=== PATIENT | female | born 1965 | race Caucasian/White ===

== ENCOUNTER 2020-10-08 02:54 | Inpatient (IN) ==
[2020-10-08] MEDS ORDERED: *HR* Dextrose 50 % in Water (Vial) 50 ML VIAL ONE (03:14)
[2020-10-08] MEDS ORDERED: 0.9 % Sodium Chloride 1,000 ML IVC ONE (03:23)
[2020-10-08 04:27] LABS: Bilirubin,Urine Negative (Negative); Blood,Urine Negative (Negative); Clarity,Urine Clear (Clear); Color,Urine Light-Yellow (Yellow); Glucose,Urine (UA) 200 mg/dL (Normal); Ketones,Urine Trace mg/dL (Negative); Leukocyte Esterase,Urine Negative (Negative); Nitrite,Urine Negative (Negative); Protein,Urine Negative (Neg-Trace); RBC,Urine 0-3 per hpf (0-3); Specific Gravity,Urine 1.009 (1.010-1.025); Squamous Epithelial Cell,Urine Few per hpf (None-Few); Urobilinogen,Urine Normal (Normal); WBC,Urine 0-3 per hpf (0-3)
[2020-10-08 04:43] LABS: VBG HCO3 29 mEq/L (21-27); VBG PCO2 53 mmHg (41-51); VBG PH 7.34 pH Units (7.32-7.42); VBG PO2 33 mmHg (25-50)
[2020-10-08 04:44] LABS: Basophils % 0.4 %; Eosinophils % 0.3 %; Hematocrit 41.9 % (35.3-44.9); Hemoglobin 13.4 g/dL (11.5-15.4); Immature Granulocytes % 0.4 % (0-4); Lymphocytes # 0.8 K/mcL (0.6-4.6); Lymphocytes % 6.9 %; Mean Corpuscular Hemoglobin 28.9 pg (28.0-33.3); Mean Corpuscular Volume 90.3 fL (83.0-100.0); Mean Platelet Volume 9.4 fL (9.4-12.4); Monocytes # 0.5 K/mcL (0.0-1.3); Monocytes % 4.5 %; Neutrophils # 9.7 K/mcL (1.6-8.9); Platelet Count 349 K/mcL (140-400); Red Blood Count 4.64 M/mcL (3.82-4.97); Red Cell Distribution Width 13.4 % (11.5-14.5); Segmented Neutrophils % 87.5 %; White Blood Count 11.1 K/mcL (4.3-11.1)
[2020-10-08 04:51] LABS: INR 1.2; Prothrombin Time 14.2 Seconds (9.4-12.1)
[2020-10-08 05:03] LABS: Alanine Aminotransferase 9 Units/L (7-52); Albumin/Globulin Ratio 1.4 (1.1-2.2); Alkaline Phosphatase 82 Units/L (34-104); Aspartate Amino Transferase 13 Units/L (13-39); BUN/Creatinine Ratio 14 (6-26); Bilirubin,Direct 0.1 mg/dL (0.0-0.2); Bilirubin,Indirect 0.4 mg/dL (0.0-1.0); Bilirubin,Total 0.5 mg/dL (0.3-1.0); Blood Urea Nitrogen 10 mg/dL (6-20); Calcium 8.8 mg/dL (8.6-10.3); Carbon Dioxide 26 mEq/L (23-29); Chloride 108 mEq/L (98-107); Globulin 2.9 g/dL (2.4-3.5); Glucose 154 mg/dL (70-105); Lipase 10 Units/L (11-82); Magnesium 2.1 mg/dL (1.6-2.6); Osmolality,Calculated 298 (280-300); Phosphorous 3.4 mg/dL (2.7-4.5); Potassium 3.2 mEq/L (3.5-5.1); Sodium 143 mEq/L (136-145); Total Protein 6.9 g/dL (6.4-8.9); Troponin I < 0.03 ng/mL (< 0.04); eGFR For African Americans > 60 (> 60); eGFR For Non-African Americans > 60 (> 60)
[2020-10-08] MEDS ORDERED: Piperacillin/Tazobactam 3.375 GM in 0.9 % Sodium Chloride Mini Bag 100 ML IVPB ONE (05:11)
[2020-10-08] MEDS ORDERED: Vancomycin 1,250 MG/262.5 ML IV.SOLN IVPB ONE (05:11)
[2020-10-08 05:16] LABS: Thyroid Stimulating Hormone 2.481 mcIU/mL (0.340-5.600)
[2020-10-08] MEDS ORDERED: Naloxone 0.4 MG/ML INJ IVP PRN (05:53)
[2020-10-08] MEDS ORDERED: Melatonin 3 MG TABLET PO PRN (05:53)
[2020-10-08] MEDS ORDERED: Ondansetron 4 MG/2 ML VIAL IVP PRN (05:53)
[2020-10-08] MEDS ORDERED: 0.9 % Sodium Chloride 1,000 ML IVC SCH (06:00)
[2020-10-08 06:23] LABS: Amphetamine Screen,Urine Positive ng/mL (Cutoff=1000); Barbiturate Screen,Urine Negative ng/mL (Cutoff=200); Benzodiazepines Screen,Urine Positive ng/mL (Cutoff=200); Cannabinoid Screen,Urine Positive ng/mL (Cutoff = 50); Cocaine Screen,Urine Positive ng/mL (Cutoff= 300); Opiate Screen,Urine Negative ng/mL (Cutoff=300); Phencyclidine Screen,Urine Negative ng/mL (Cutoff=25)
[2020-10-08] MEDS: Doxycycline 100 MG in 0.9 % Sodium Chloride Mini Bag 100 ML IVPB SCH ×2 (07:47→18:13)
[2020-10-08] MEDS ORDERED: *HR* LORazepam 2 MG/ML VIAL ONE ×3 (07:54→08:37)
[2020-10-08] MEDS ORDERED: *HR* LORazepam 2 MG/ML VIAL IVP STA ×3 (07:57→18:14)
[2020-10-08] MEDS ORDERED: *HR* LORazepam 2 MG/ML VIAL IVP ONE ×4 (08:01→11:31)
[2020-10-08] MEDS ORDERED: Haloperidol Lactate 5 MG/ML VIAL IVP ONE ×2 (08:04→10:24)
[2020-10-08 08:32] LABS: Acetaminophen < 10 mcg/mL (10-20); Salicylate < 2.5 mg/dL (15.0-30.0)
[2020-10-08] MEDS: 0.9 % Sodium Chloride 1,000 ML IVC SCH ×2 (10:36→18:14)
[2020-10-08] MEDS: Ampicillin/Sulbactam 1,500 MG in 0.9 % Sodium Chloride Mini Bag 100 ML IVPB SCH ×3 (11:22→21:53)
[2020-10-08] MEDS ORDERED: Ziprasidone 10 MG in Water for inj. (sterile) 0.5 ML IM STA (13:33)
[2020-10-08] MEDS ORDERED: QUEtiapine Fumarate 100 MG TABLET PO ONE (19:00)
[2020-10-09 02:18] LABS: Basophils # 0.1 K/mcL (0.0-0.2); Basophils % 0.5 %; Eosinophils # 0.1 K/mcL (0.0-0.6); Eosinophils % 0.5 %; Hematocrit 42.6 % (35.3-44.9); Hemoglobin 13.5 g/dL (11.5-15.4); Immature Granulocytes % 0.4 % (0-4); Lymphocytes # 1.5 K/mcL (0.6-4.6); Lymphocytes % 13.1 %; Mean Corpuscular HGB Conc 31.7 g/dL (31.6-35.5); Mean Corpuscular Hemoglobin 28.7 pg (28.0-33.3); Mean Corpuscular Volume 90.4 fL (83.0-100.0); Mean Platelet Volume 10.7 fL (9.4-12.4); Monocytes # 0.9 K/mcL (0.0-1.3); Monocytes % 8.3 %; Neutrophils # 8.8 K/mcL (1.6-8.9); Platelet Count 303 K/mcL (140-400); Red Blood Count 4.71 M/mcL (3.82-4.97); Red Cell Distribution Width 13.4 % (11.5-14.5); Segmented Neutrophils % 77.2 %; White Blood Count 11.4 K/mcL (4.3-11.1)
[2020-10-09 03:23] LABS: BUN/Creatinine Ratio 13 (6-26); Blood Urea Nitrogen 8 mg/dL (6-20); Calcium 9.3 mg/dL (8.6-10.3); Carbon Dioxide 18 mEq/L (23-29); Chloride 106 mEq/L (98-107); Glucose 54 mg/dL (70-105); Magnesium 1.8 mg/dL (1.6-2.6); Osmolality,Calculated 288 (280-300); Potassium 3.1 mEq/L (3.5-5.1); Sodium 141 mEq/L (136-145); eGFR For African Americans > 60 (> 60); eGFR For Non-African Americans > 60 (> 60)
[2020-10-09] MEDS: Ampicillin/Sulbactam 1,500 MG in 0.9 % Sodium Chloride Mini Bag 100 ML IVPB SCH ×4 (04:15→20:40)
[2020-10-09] MEDS ORDERED: Haloperidol Lactate 5 MG/ML VIAL IVP ONE (04:59)
[2020-10-09] MEDS: Doxycycline 100 MG in 0.9 % Sodium Chloride Mini Bag 100 ML IVPB SCH ×2 (05:01→17:16)
[2020-10-09] MEDS: diazePAM 10 MG/2 ML SYRINGE IVP PRN (08:58)
[2020-10-09] MEDS ORDERED: Potassium Chloride Elixir 20 MEQ/15 ML UDC PO ONE (13:30)
[2020-10-09] MEDS: *HR* Heparin 5,000 UNIT/ML VIAL SQ SCH ×2 (14:09→20:39)
[2020-10-09] MEDS: Acetaminophen 325 MG TABLET PO PRN (20:39)
[2020-10-10] MEDS: diazePAM 10 MG/2 ML SYRINGE IVP PRN (01:36)
[2020-10-10] MEDS: Ampicillin/Sulbactam 1,500 MG in 0.9 % Sodium Chloride Mini Bag 100 ML IVPB SCH ×2 (04:27→09:52)
[2020-10-10] MEDS: Acetaminophen 325 MG TABLET PO PRN ×2 (04:27→11:54)
[2020-10-10] MEDS: Doxycycline 100 MG in 0.9 % Sodium Chloride Mini Bag 100 ML IVPB SCH (05:04)
[2020-10-10] MEDS: *HR* Heparin 5,000 UNIT/ML VIAL SQ SCH (05:05)
[2020-10-10 08:21] LABS: Basophils # 0.1 K/mcL (0.0-0.2); Basophils % 0.8 %; Eosinophils # 0.1 K/mcL (0.0-0.6); Eosinophils % 0.7 %; Hematocrit 45.1 % (35.3-44.9); Hemoglobin 14.6 g/dL (11.5-15.4); Immature Granulocytes % 0.2 % (0-4); Lymphocytes # 1.7 K/mcL (0.6-4.6); Lymphocytes % 20.3 %; Mean Corpuscular HGB Conc 32.4 g/dL (31.6-35.5); Mean Corpuscular Hemoglobin 28.9 pg (28.0-33.3); Mean Corpuscular Volume 89.3 fL (83.0-100.0); Mean Platelet Volume 9.8 fL (9.4-12.4); Monocytes # 0.7 K/mcL (0.0-1.3); Monocytes % 8.9 %; Neutrophils # 5.7 K/mcL (1.6-8.9); Platelet Count 408 K/mcL (140-400); Red Blood Count 5.05 M/mcL (3.82-4.97); Red Cell Distribution Width 13.6 % (11.5-14.5); Segmented Neutrophils % 69.1 %; White Blood Count 8.2 K/mcL (4.3-11.1)
[2020-10-10 08:40] LABS: BUN/Creatinine Ratio 17 (6-26); Blood Urea Nitrogen 13 mg/dL (6-20); Calcium 9.2 mg/dL (8.6-10.3); Carbon Dioxide 27 mEq/L (23-29); Chloride 107 mEq/L (98-107); Glucose 89 mg/dL (70-105); Osmolality,Calculated 284 (280-300); Potassium 3.4 mEq/L (3.5-5.1); Sodium 137 mEq/L (136-145); eGFR For African Americans > 60 (> 60); eGFR For Non-African Americans > 60 (> 60)
[2020-10-10 12:08] VITALS: BP 133/80
== END 2020-10-10 14:07 | disposition home or self-care (01) | DRG 720 ==
LOC: EMEROOARM 02:54 → 2NNU 02:54 → SUATTDRO 06:45 → 2NNU 07:30 → 2ANU 15:50
PROVIDERS: ADMIT Student in an Organized Health Care Education/Training Program; ATTEND Student in an Organized Health Care Education/Training Program

== ENCOUNTER 2021-01-31 17:59 | Observation (INO) ==
[2021-01-31] MEDS ORDERED: Ipratropium/Albuterol Neb 3 ML IH ONE (20:11)
[2021-01-31 20:20] LABS: Basophils % 0.5 %; Eosinophils # 0.1 K/mcL (0.0-0.6); Eosinophils % 1.1 %; Hematocrit 34.7 % (35.3-44.9); Hemoglobin 11.2 g/dL (11.5-15.4); Immature Granulocytes % 0.4 % (0-4); Lymphocytes # 1.3 K/mcL (0.6-4.6); Lymphocytes % 22.8 %; Mean Corpuscular HGB Conc 32.3 g/dL (31.6-35.5); Mean Corpuscular Hemoglobin 29.3 pg (28.0-33.3); Mean Corpuscular Volume 90.8 fL (83.0-100.0); Mean Platelet Volume 9.7 fL (9.4-12.4); Monocytes # 0.5 K/mcL (0.0-1.3); Neutrophils # 3.7 K/mcL (1.6-8.9); Platelet Count 414 K/mcL (140-400); Red Blood Count 3.82 M/mcL (3.82-4.97); Red Cell Distribution Width 14.3 % (11.5-14.5); Segmented Neutrophils % 66.2 %; White Blood Count 5.7 K/mcL (4.3-11.1)
[2021-01-31 20:47] LABS: BUN/Creatinine Ratio 15 (6-26); Blood Urea Nitrogen 8 mg/dL (6-20); Calcium 8.6 mg/dL (8.6-10.3); Carbon Dioxide 27 mEq/L (23-29); Chloride 99 mEq/L (98-107); Glucose 117 mg/dL (70-105); Osmolality,Calculated 283 (280-300); Sodium 137 mEq/L (136-145); Troponin I < 0.03 ng/mL (< 0.04); eGFR For African Americans > 60 (> 60); eGFR For Non-African Americans > 60 (> 60)
[2021-01-31] MEDS ORDERED: Piperacillin/Tazobactam 3.375 GM in 0.9 % Sodium Chloride Mini Bag 100 ML IVPB ONE (21:00)
[2021-01-31] MEDS ORDERED: Potassium Chloride Elixir 20 MEQ/15 ML UDC PO ONE (21:29)
[2021-01-31] MEDS ORDERED: Isovue-370 500 ML BOTTLE IVP ONE (22:50)
[2021-02-01] MEDS ORDERED: Naloxone 0.4 MG/ML INJ IVP PRN (03:53)
[2021-02-01] MEDS ORDERED: methylPREDNISolone 125 MG/2 ML VIAL IVP ONE (06:05)
[2021-02-01] MEDS ORDERED: Perflutren Lipid Microsphere 1.3 ML in 0.9 % Sodium Chloride 8.7 ML IVP PRN (06:25)
[2021-02-01] MEDS ORDERED: Piperacillin/Tazobactam 3.375 GM in 0.9 % Sodium Chloride Mini Bag 100 ML IVPB SCH (07:00)
[2021-02-01] MEDS: Ipratropium/Albuterol Neb 3 ML IH SCH ×2 (08:02→11:06)
[2021-02-01] MEDS ORDERED: Nicotine 21 MG PATCH.TD24 TD SCH (09:00)
[2021-02-01] MEDS ORDERED: Lactobacillus 1 EACH CAP.SPRINK PO SCH (09:00)
[2021-02-01] MEDS ORDERED: Furosemide 40 MG/4 ML VIAL IVP SCH (09:00)
[2021-02-01] MEDS ORDERED: Budesonide/Formoterol 160/4.5 1 PUFF INH IH SCH (10:00)
[2021-02-01 10:13] LABS: Basophils % 0.5 %; Eosinophils % 0.3 %; Hematocrit 35.8 % (35.3-44.9); Hemoglobin 11.8 g/dL (11.5-15.4); Immature Granulocytes % 0.6 % (0-4); Lymphocytes # 0.5 K/mcL (0.6-4.6); Lymphocytes % 7.9 %; Mean Corpuscular Hemoglobin 29.9 pg (28.0-33.3); Mean Corpuscular Volume 90.6 fL (83.0-100.0); Mean Platelet Volume 9.4 fL (9.4-12.4); Monocytes # 0.2 K/mcL (0.0-1.3); Monocytes % 2.9 %; Neutrophils # 5.5 K/mcL (1.6-8.9); Platelet Count 406 K/mcL (140-400); Red Blood Count 3.95 M/mcL (3.82-4.97); Red Cell Distribution Width 14.4 % (11.5-14.5); Segmented Neutrophils % 87.8 %; White Blood Count 6.2 K/mcL (4.3-11.1)
[2021-02-01 10:33] LABS: BUN/Creatinine Ratio 11 (6-26); Blood Urea Nitrogen 6 mg/dL (6-20); Calcium 8.4 mg/dL (8.6-10.3); Carbon Dioxide 27 mEq/L (23-29); Chloride 101 mEq/L (98-107); Glucose 109 mg/dL (70-105); Magnesium 1.8 mg/dL (1.6-2.6); Osmolality,Calculated 282 (280-300); Phosphorous 3.6 mg/dL (2.7-4.5); Potassium 4.2 mEq/L (3.5-5.1); Sodium 137 mEq/L (136-145); eGFR For African Americans > 60 (> 60); eGFR For Non-African Americans > 60 (> 60)
[2021-02-01 10:57] VITALS: BP 121/70
[2021-02-01 11:02] LABS: Amphetamine Screen,Urine Positive ng/mL (Cutoff=1000); Barbiturate Screen,Urine Negative ng/mL (Cutoff=200); Benzodiazepines Screen,Urine Negative ng/mL (Cutoff=200); Cannabinoid Screen,Urine Positive ng/mL (Cutoff = 50); Cocaine Screen,Urine Negative ng/mL (Cutoff= 300); Opiate Screen,Urine Negative ng/mL (Cutoff=300); Phencyclidine Screen,Urine Negative ng/mL (Cutoff=25)
[2021-02-01] MEDS: Nicotine 2 MG GUM BC SCH ×3 (11:04→14:37)
[2021-02-01 11:31] LABS: Adenovirus Not Detected (Not Detect); Bordetella Pertussis Not Detected (Not Detect); Chlamydophila pneumoniae Not Detected (Not Detect); Coronavirus 229E Not Detected (Not Detect); Coronavirus HKU1 Not Detected (Not Detect); Coronavirus NL63 Not Detected (Not Detect); Coronavirus OC43 Not Detected (Not Detect); Human Metapneumovirus Not Detected (Not Detect); Human Rhinovirus/Enterovirus Not Detected (Not Detect); Influenza A Subtype 2009 H1 Not Detected (Not Detect); Influenza B Not Detected (Not Detect); Mycoplasma pneumoniae Not Detected (Not Detect); Parainfluenza Virus 1 Not Detected (Not Detect); Parainfluenza Virus 2 Not Detected (Not Detect); Parainfluenza Virus 3 Not Detected (Not Detect); Parainfluenza Virus 4 Not Detected (Not Detect); Respiratory Syncytial Virus Not Detected (Not Detect); SARS-CoV-2 Not Detected (Not Detect)
[2021-02-01] MEDS ORDERED: MethylPREDNISolone 40 MG/ML VIAL IVP SCH (12:00)
[2021-02-01] MEDS ORDERED: *HR* Heparin 5,000 UNIT/ML VIAL SQ SCH (18:00)
[2021-02-02] MEDS ORDERED: Magnesium Oxide 400 MG TABLET PO SCH (09:00)
[2021-02-02] MEDS ORDERED: predniSONE 20 MG TABLET PO SCH (09:00)
[2021-02-02 12:39] LABS: Acinetobacter baumannii by PCR Not Detected (Not Detect); Candida albicans by PCR Not Detected (Not Detect); Candida glabrata by PCR Not Detected (Not Detect); Candida krusei by PCR Not Detected (Not Detect); Candida parapsilosis by PCR Not Detected (Not Detect); Candida tropicalis by PCR Not Detected (Not Detect); Enterobacter cloacae Cmplx PCR Not Detected (Not Detect); Enterobacteriaceae by PCR Not Detected (Not Detect); Enterococcus by PCR Not Detected (Not Detect); Escherichia coli by PCR Not Detected (Not Detect); Klebsiella oxytoca by PCR Not Detected (Not Detect); Klebsiella pneumoniae by PCR Not Detected (Not Detect); Proteus by PCR Not Detected (Not Detect); Pseudomonas aeruginosa by PCR Not Detected (Not Detect); Serratia marcescens by PCR Not Detected (Not Detect); Staphylococcus aureus by PCR Not Detected (Not Detect); Staphylococcus by PCR Not Detected (Not Detect); Streptococcus agalactiae(B)PCR Not Detected (Not Detect); Streptococcus by PCR Not Detected (Not Detect); Streptococcus pneumoniae PCR Not Detected (Not Detect); Streptococcus pyogenes (A) PCR Not Detected (Not Detect)
== END 2021-02-01 14:55 | disposition home or self-care (01) ==
LOC: EMEROOARM 17:59 → 3ANU 17:59 → SUATTDRO 02-01 02:34 → 3ANU 02-01 03:07
PROVIDERS: ADMIT Student in an Organized Health Care Education/Training Program; ATTEND Internal Medicine

== ENCOUNTER 2021-04-19 00:42 | Inpatient (IN) ==
[2021-04-19 07:15] LABS: Basophils % 0.3 %; Eosinophils # 0.1 K/mcL (0.0-0.6); Eosinophils % 0.6 %; Hematocrit 28.8 % (35.3-44.9); Hemoglobin 8.9 g/dL (11.5-15.4); Immature Granulocytes % 0.2 % (0-4); Lymphocytes # 1.3 K/mcL (0.6-4.6); Lymphocytes % 13.5 %; Mean Corpuscular HGB Conc 30.9 g/dL (31.6-35.5); Mean Corpuscular Hemoglobin 28.9 pg (28.0-33.3); Mean Corpuscular Volume 93.5 fL (83.0-100.0); Mean Platelet Volume 8.6 fL (9.4-12.4); Monocytes # 1.4 K/mcL (0.0-1.3); Monocytes % 14.6 %; Neutrophils # 6.7 K/mcL (1.6-8.9); Platelet Count 462 K/mcL (140-400); Red Blood Count 3.08 M/mcL (3.82-4.97); Red Cell Distribution Width 13.7 % (11.5-14.5); Segmented Neutrophils % 70.8 %; White Blood Count 9.4 K/mcL (4.3-11.1)
[2021-04-19 07:28] LABS: BUN/Creatinine Ratio 19 (6-26); Blood Urea Nitrogen 11 mg/dL (6-20); Calcium 8.1 mg/dL (8.6-10.3); Carbon Dioxide 26 mEq/L (23-29); Chloride 103 mEq/L (98-107); Glucose 100 mg/dL (70-105); Osmolality,Calculated 279 (280-300); Sodium 135 mEq/L (136-145); eGFR For African Americans > 60 (> 60); eGFR For Non-African Americans > 60 (> 60)
[2021-04-19] MEDS ORDERED: Isovue-370 500 ML BOTTLE IVP ONE ×2 (07:32→10:05)
[2021-04-19] MEDS ORDERED: Ipratropium/Albuterol Neb 3 ML IH ONE (07:32)
[2021-04-19] MEDS ORDERED: Aspirin 325 MG TABLET PO ONE (07:38)
[2021-04-19 08:39] LABS: Influenza A PCR Negative (Negative); Influenza B PCR Negative (Negative); Resp. Syncytial Virus PCR Negative (Negative); SARS-CoV-2 by PCR (In House) Negative (Negative)
[2021-04-19 09:16] LABS: Basophils % 0.3 %; Eosinophils # 0.1 K/mcL (0.0-0.6); Eosinophils % 0.6 %; Hematocrit 26.6 % (35.3-44.9); Hemoglobin 8.5 g/dL (11.5-15.4); Immature Granulocytes % 0.3 % (0-4); Lymphocytes # 1.1 K/mcL (0.6-4.6); Mean Corpuscular Hemoglobin 29.7 pg (28.0-33.3); Mean Platelet Volume 8.5 fL (9.4-12.4); Monocytes # 1.6 K/mcL (0.0-1.3); Monocytes % 15.2 %; Platelet Count 432 K/mcL (140-400); Red Blood Count 2.86 M/mcL (3.82-4.97); Red Cell Distribution Width 13.6 % (11.5-14.5); Segmented Neutrophils % 73.6 %; White Blood Count 10.8 K/mcL (4.3-11.1)
[2021-04-19 09:24] LABS: INR 1.6; Prothrombin Time 17.7 Seconds (9.4-12.1)
[2021-04-19 09:39] LABS: BUN/Creatinine Ratio 18 (6-26); Blood Urea Nitrogen 10 mg/dL (6-20); Calcium 8.1 mg/dL (8.6-10.3); Carbon Dioxide 25 mEq/L (23-29); Chloride 103 mEq/L (98-107); Glucose 121 mg/dL (70-105); Osmolality,Calculated 278 (280-300); Potassium 3.7 mEq/L (3.5-5.1); Sodium 134 mEq/L (136-145); eGFR For African Americans > 60 (> 60); eGFR For Non-African Americans > 60 (> 60)
[2021-04-19 09:40] LABS: Troponin I < 0.03 ng/mL (< 0.04)
[2021-04-19] MEDS ORDERED: cefTRIAXone 1,000 MG in Water for inj. (sterile) 10 ML IVP ONE (09:59)
[2021-04-19] MEDS ORDERED: Azithromycin 500 MG in 0.9 % Sodium Chloride 250 ML IVPB ONE (09:59)
[2021-04-19] MEDS ORDERED: Pantoprazole 40 MG VIAL IVP ONE (10:04)
[2021-04-19] MEDS ORDERED: Perflutren Lipid Microsphere 1.3 ML in 0.9 % Sodium Chloride 8.7 ML IVP PRN (12:13)
[2021-04-19] MEDS ORDERED: Naloxone 0.4 MG/ML INJ IVP PRN (12:35)
[2021-04-19] MEDS ORDERED: Ondansetron 4 MG/2 ML VIAL IVP PRN ×2 (12:35→18:21)
[2021-04-19] MEDS ORDERED: Ipratropium/Albuterol Neb 3 ML IH PRN (15:52)
[2021-04-19] MEDS ORDERED: *HR* Rocuronium Bromide 50 MG/5 ML VIAL ONE (16:24)
[2021-04-19] MEDS ORDERED: EPINEPHrine 1 MG/ML VIAL ONE (16:24)
[2021-04-19] MEDS ORDERED: *HR* Etomidate 20 MG/10 ML AMPUL IVP ONE (16:24)
[2021-04-19] MEDS ORDERED: *HR* FentaNYL (PF) 250 MCG/5 ML VIAL ONE (16:25)
[2021-04-19] MEDS ORDERED: Lidocaine 1% 20 ML MDV ONE (17:11)
[2021-04-19] MEDS ORDERED: Ondansetron 4 MG/2 ML VIAL ONE (17:15)
[2021-04-19] MEDS ORDERED: methylPREDNISolone 125 MG/2 ML VIAL ONE (17:15)
[2021-04-19] MEDS ORDERED: *HR* Meperidine 25 MG/ML SYRINGE IVP PRN (18:21)
[2021-04-19] MEDS ORDERED: *HR* OxyCODONE Immed Rel 5 MG TABLET PO PRN (18:21)
[2021-04-19] MEDS ORDERED: *HR* HYDROmorphone (PF) 1 MG/ML SYRINGE ONE (18:25)
[2021-04-19] MEDS ORDERED: *HR* FentaNYL (PF) 100 MCG/2 ML VIAL ONE (18:27)
[2021-04-19] MEDS: *HR* FentaNYL (PF) 100 MCG/2 ML VIAL IVP PRN ×4 (18:30→19:00)
[2021-04-19] MEDS ORDERED: Ringers Solution, Lactated 1,000 ML IVC SCH (18:30)
[2021-04-19] MEDS: *HR* HYDROmorphone (PF) 1 MG/ML SYRINGE IVP PRN (20:48)
[2021-04-19] MEDS: *HR* LORazepam 0.5 MG TABLET PO SCH (20:48)
[2021-04-19] MEDS: Sildenafil Citrate 20 MG TABLET PO SCH (21:01)
[2021-04-19 21:06] LABS: RBC,Pleural Fluid 5000 RBC/mcL
[2021-04-19 21:09] LABS: Appearance of Pleural Fl Hazy (Clear)
[2021-04-19 22:49] LABS: Appearance of Body Fluid Cloudy (Clear); Volume of Body Fluid 35 mL
[2021-04-19 23:14] LABS: Basophils,Pleural Fluid 0 %; Eosinophils,Pleural Fluid 0 %; Monocytes,Pleural Fluid 0 %
[2021-04-20 01:15] LABS: Total Protein,Pleural Fluid 2.8 g/dL
[2021-04-20] MEDS: *HR* HYDROmorphone (PF) 1 MG/ML SYRINGE IVP PRN ×4 (01:40→19:48)
[2021-04-20] MEDS: *HR* LORazepam 0.5 MG TABLET PO SCH ×3 (07:52→19:47)
[2021-04-20] MEDS: Cholecalciferol (D-3) 1,000 UNIT (25MCG) TABLET PO SCH (07:53)
[2021-04-20] MEDS: Aspirin 81 MG TAB.CHEW PO SCH (07:53)
[2021-04-20] MEDS: Sildenafil Citrate 20 MG TABLET PO SCH ×2 (07:53→14:21)
[2021-04-20] MEDS: Nicotine 14 MG PATCH.TD24 TD SCH (07:54)
[2021-04-20] MEDS ORDERED: predniSONE 20 MG TABLET PO ONE (08:31)
[2021-04-20] MEDS ORDERED: predniSONE 20 MG TABLET PO SCH (09:00)
[2021-04-20] MEDS: Hydrocortisone Sodium Succ 100 MG/2 ML VIAL IVP SCH ×3 (09:23→23:01)
[2021-04-20 09:51] LABS: Basophils % 0.1 %; Hematocrit 34.4 % (35.3-44.9); Immature Granulocytes % 0.2 % (0-4); Lymphocytes # 0.5 K/mcL (0.6-4.6); Lymphocytes % 5.3 %; Mean Corpuscular Hemoglobin 29.5 pg (28.0-33.3); Mean Corpuscular Volume 92.2 fL (83.0-100.0); Mean Platelet Volume 8.9 fL (9.4-12.4); Monocytes # 0.3 K/mcL (0.0-1.3); Monocytes % 2.7 %; Platelet Count 595 K/mcL (140-400); Red Blood Count 3.73 M/mcL (3.82-4.97); Red Cell Distribution Width 13.4 % (11.5-14.5); Segmented Neutrophils % 91.7 %; White Blood Count 9.8 K/mcL (4.3-11.1)
[2021-04-20 10:13] LABS: Alanine Aminotransferase 34 Units/L (7-52); Alkaline Phosphatase 177 Units/L (34-104); Aspartate Amino Transferase 17 Units/L (13-39); BUN/Creatinine Ratio 25 (6-26); Bilirubin,Indirect 0.3 mg/dL (0.0-1.0); Bilirubin,Total 0.3 mg/dL (0.3-1.0); Blood Urea Nitrogen 13 mg/dL (6-20); Calcium 8.7 mg/dL (8.6-10.3); Carbon Dioxide 24 mEq/L (23-29); Chloride 102 mEq/L (98-107); Glucose 94 mg/dL (70-105); Iron 10 mcg/dL (50-170); Magnesium 2.2 mg/dL (1.6-2.6); Osmolality,Calculated 276 (280-300); Potassium 4.3 mEq/L (3.5-5.1); Sodium 133 mEq/L (136-145); eGFR For African Americans > 60 (> 60); eGFR For Non-African Americans > 60 (> 60)
[2021-04-20 10:31] LABS: Ferritin 135 ng/mL (10-120)
[2021-04-20 10:36] LABS: Folate 6.5 ng/mL (3.0-16.0)
[2021-04-20] MEDS: Acetaminophen 325 MG TABLET PO PRN (11:23)
[2021-04-20 11:50] LABS: % Iron Saturation 5 % (15-50); Transferrin 156 mg/dL (203-362)
[2021-04-20] MEDS ORDERED: Furosemide 40 MG/4 ML VIAL IVP ONE (12:28)
[2021-04-20] MEDS ORDERED: Albumin 25% 12.5gm/50mL 12.5 GM/50 ML IV.SOLN IVPB ONE (12:32)
[2021-04-20] MEDS: *HR* Heparin 5,000 UNIT/ML VIAL SQ SCH ×2 (14:21→23:01)
[2021-04-20] MEDS ORDERED: Ringers Solution, Lactated 1,000 ML IVC SCH (17:15)
[2021-04-20] MEDS: Piperacillin/Tazobactam 3.375 GM in 0.9 % Sodium Chloride Mini Bag 100 ML IVPB SCH (19:48)
[2021-04-21] MEDS: *HR* HYDROmorphone (PF) 1 MG/ML SYRINGE IVP PRN ×5 (02:12→23:16)
[2021-04-21] MEDS: Piperacillin/Tazobactam 3.375 GM in 0.9 % Sodium Chloride Mini Bag 100 ML IVPB SCH ×3 (04:02→20:32)
[2021-04-21] MEDS: *HR* Heparin 5,000 UNIT/ML VIAL SQ SCH ×3 (05:19→20:33)
[2021-04-21] MEDS: Aspirin 81 MG TAB.CHEW PO SCH (07:52)
[2021-04-21] MEDS: cilostazoL 100 MG TABLET PO SCH ×2 (07:52→20:32)
[2021-04-21] MEDS: Cholecalciferol (D-3) 1,000 UNIT (25MCG) TABLET PO SCH (07:52)
[2021-04-21] MEDS: *HR* LORazepam 0.5 MG TABLET PO SCH ×2 (07:52→20:31)
[2021-04-21] MEDS: Hydrocortisone Sodium Succ 100 MG/2 ML VIAL IVP SCH ×3 (07:53→23:16)
[2021-04-21] MEDS: Nicotine 14 MG PATCH.TD24 TD SCH (07:53)
[2021-04-21] MEDS: Furosemide 40 MG/4 ML VIAL IVP SCH (07:53)
[2021-04-21] MEDS ORDERED: predniSONE 20 MG TABLET PO SCH (09:00)
[2021-04-21] MEDS: Ipratropium 1 PUFF INHALER IH SCH ×3 (10:50→21:13)
[2021-04-21] MEDS: Acetaminophen 325 MG TABLET PO PRN (11:13)
[2021-04-21 12:14] LABS: Basophils % 0.1 %; Hematocrit 34.5 % (35.3-44.9); Hemoglobin 10.9 g/dL (11.5-15.4); Immature Granulocytes % 0.3 % (0-4); Lymphocytes # 0.7 K/mcL (0.6-4.6); Lymphocytes % 4.5 %; Mean Corpuscular HGB Conc 31.6 g/dL (31.6-35.5); Mean Corpuscular Hemoglobin 28.9 pg (28.0-33.3); Mean Corpuscular Volume 91.5 fL (83.0-100.0); Mean Platelet Volume 8.6 fL (9.4-12.4); Monocytes # 0.9 K/mcL (0.0-1.3); Monocytes % 5.9 %; Platelet Count 796 K/mcL (140-400); Red Blood Count 3.77 M/mcL (3.82-4.97); Red Cell Distribution Width 13.4 % (11.5-14.5); Segmented Neutrophils % 89.2 %; White Blood Count 14.6 K/mcL (4.3-11.1)
[2021-04-21 12:38] LABS: BUN/Creatinine Ratio 28 (6-26); Blood Urea Nitrogen 24 mg/dL (6-20); Calcium 8.5 mg/dL (8.6-10.3); Carbon Dioxide 27 mEq/L (23-29); Chloride 100 mEq/L (98-107); Glucose 116 mg/dL (70-105); Magnesium 2.1 mg/dL (1.6-2.6); Osmolality,Calculated 293 (280-300); Potassium 3.6 mEq/L (3.5-5.1); Sodium 139 mEq/L (136-145); eGFR For African Americans > 60 (> 60); eGFR For Non-African Americans > 60 (> 60)
[2021-04-22 03:30] LABS: Basophils % 0.1 %; Hemoglobin 9.7 g/dL (11.5-15.4); Immature Granulocytes % 0.3 % (0-4); Lymphocytes # 0.6 K/mcL (0.6-4.6); Lymphocytes % 6.1 %; Mean Corpuscular HGB Conc 32.3 g/dL (31.6-35.5); Mean Corpuscular Volume 92.9 fL (83.0-100.0); Mean Platelet Volume 9.1 fL (9.4-12.4); Monocytes # 0.5 K/mcL (0.0-1.3); Monocytes % 4.9 %; Neutrophils # 9.1 K/mcL (1.6-8.9); Platelet Count 550 K/mcL (140-400); Red Blood Count 3.23 M/mcL (3.82-4.97); Red Cell Distribution Width 13.4 % (11.5-14.5); Segmented Neutrophils % 88.6 %; White Blood Count 10.3 K/mcL (4.3-11.1)
[2021-04-22 03:51] LABS: BUN/Creatinine Ratio 30 (6-26); Blood Urea Nitrogen 21 mg/dL (6-20); Calcium 7.8 mg/dL (8.6-10.3); Carbon Dioxide 26 mEq/L (23-29); Chloride 104 mEq/L (98-107); Glucose 110 mg/dL (70-105); Magnesium 2.1 mg/dL (1.6-2.6); Osmolality,Calculated 292 (280-300); Potassium 3.3 mEq/L (3.5-5.1); Sodium 139 mEq/L (136-145); eGFR For African Americans > 60 (> 60); eGFR For Non-African Americans > 60 (> 60)
[2021-04-22] MEDS: Piperacillin/Tazobactam 3.375 GM in 0.9 % Sodium Chloride Mini Bag 100 ML IVPB SCH ×3 (04:07→20:44)
[2021-04-22] MEDS: Ipratropium 1 PUFF INHALER IH SCH ×4 (04:54→22:14)
[2021-04-22] MEDS: *HR* Heparin 5,000 UNIT/ML VIAL SQ SCH ×3 (05:48→20:43)
[2021-04-22] MEDS: *HR* HYDROmorphone (PF) 1 MG/ML SYRINGE IVP PRN ×3 (05:49→23:12)
[2021-04-22] MEDS: Aspirin 81 MG TAB.CHEW PO SCH (08:26)
[2021-04-22] MEDS: cilostazoL 100 MG TABLET PO SCH ×2 (08:26→20:43)
[2021-04-22] MEDS: predniSONE 20 MG TABLET PO SCH (08:26)
[2021-04-22] MEDS: Cholecalciferol (D-3) 1,000 UNIT (25MCG) TABLET PO SCH (08:26)
[2021-04-22] MEDS: Furosemide 40 MG/4 ML VIAL IVP SCH (08:27)
[2021-04-22] MEDS: Hydrocortisone Sodium Succ 100 MG/2 ML VIAL IVP SCH (08:27)
[2021-04-22] MEDS: *HR* LORazepam 0.5 MG TABLET PO SCH ×2 (08:27→20:44)
[2021-04-22] MEDS: Nicotine 14 MG PATCH.TD24 TD SCH (08:27)
[2021-04-22] MEDS: Sildenafil Citrate 20 MG TABLET PO SCH ×3 (08:30→20:44)
[2021-04-22] MEDS: NIFEdipine XL (24 HR) 30 MG TAB.ER.24 PO SCH (08:30)
[2021-04-23 02:15] LABS: Hemoglobin 9.8 g/dL (11.5-15.4); Immature Granulocytes % 0.3 % (0-4); Lymphocytes # 1.5 K/mcL (0.6-4.6); Lymphocytes % 13.5 %; Mean Corpuscular HGB Conc 31.6 g/dL (31.6-35.5); Mean Corpuscular Volume 91.7 fL (83.0-100.0); Mean Platelet Volume 8.4 fL (9.4-12.4); Monocytes # 1.1 K/mcL (0.0-1.3); Neutrophils # 8.3 K/mcL (1.6-8.9); Platelet Count 586 K/mcL (140-400); Red Blood Count 3.38 M/mcL (3.82-4.97); Red Cell Distribution Width 13.4 % (11.5-14.5); Segmented Neutrophils % 76.2 %; White Blood Count 10.9 K/mcL (4.3-11.1)
[2021-04-23 02:29] LABS: BUN/Creatinine Ratio 31 (6-26); Blood Urea Nitrogen 19 mg/dL (6-20); Calcium 7.9 mg/dL (8.6-10.3); Carbon Dioxide 27 mEq/L (23-29); Chloride 103 mEq/L (98-107); Glucose 91 mg/dL (70-105); Osmolality,Calculated 290 (280-300); Potassium 3.4 mEq/L (3.5-5.1); Sodium 139 mEq/L (136-145); eGFR For African Americans > 60 (> 60); eGFR For Non-African Americans > 60 (> 60)
[2021-04-23] MEDS: Ipratropium 1 PUFF INHALER IH SCH ×4 (03:47→21:12)
[2021-04-23] MEDS: Piperacillin/Tazobactam 3.375 GM in 0.9 % Sodium Chloride Mini Bag 100 ML IVPB SCH ×2 (04:40→11:31)
[2021-04-23] MEDS: *HR* HYDROmorphone (PF) 1 MG/ML SYRINGE IVP PRN ×2 (05:49→21:10)
[2021-04-23] MEDS: *HR* Heparin 5,000 UNIT/ML VIAL SQ SCH ×3 (05:50→21:18)
[2021-04-23] MEDS: Cholecalciferol (D-3) 1,000 UNIT (25MCG) TABLET PO SCH (08:20)
[2021-04-23] MEDS: cilostazoL 100 MG TABLET PO SCH ×2 (08:20→21:14)
[2021-04-23] MEDS: NIFEdipine XL (24 HR) 30 MG TAB.ER.24 PO SCH (08:20)
[2021-04-23] MEDS: *HR* LORazepam 0.5 MG TABLET PO SCH ×2 (08:21→21:13)
[2021-04-23] MEDS: predniSONE 20 MG TABLET PO SCH (08:21)
[2021-04-23] MEDS: Furosemide 40 MG/4 ML VIAL IVP SCH (08:21)
[2021-04-23] MEDS: Aspirin 81 MG TAB.CHEW PO SCH (08:21)
[2021-04-23] MEDS: Sildenafil Citrate 20 MG TABLET PO SCH ×3 (08:22→21:22)
[2021-04-23] MEDS: Nicotine 14 MG PATCH.TD24 TD SCH (08:23)
[2021-04-23] MEDS: Acetaminophen 325 MG TABLET PO PRN (11:30)
[2021-04-23] MEDS ORDERED: D5% in Water 1,000 ML IVC PRN (12:04)
[2021-04-23] MEDS ORDERED: Dextrose Gel 15 GM/37.5 ML TUBE PO PRN ×2 (12:04)
[2021-04-23] MEDS ORDERED: *HR* Dextrose 50 % in Water (Vial) 50 ML VIAL IVP PRN (12:04)
[2021-04-23] MEDS ORDERED: predniSONE 20 MG TABLET PO ONE (13:16)
[2021-04-23] MEDS ORDERED: Ringers Solution, Lactated 1,000 ML IVC ONE (13:48)
[2021-04-23] MEDS ORDERED: Hydrocortisone Sodium Succ 100 MG/2 ML VIAL IVP ONE (13:49)
[2021-04-23] MEDS: Insulin LISPRO 300 UNITS/3 ML VIAL SUBQ SCH (17:05)
[2021-04-23] MEDS ORDERED: Insulin LISPRO 300 UNITS/3 ML VIAL SUBQ SCH (21:00)
[2021-04-23] MEDS: Hydrocortisone Sodium Succ 100 MG/2 ML VIAL IVP SCH (21:25)
[2021-04-24] MEDS: Hydrocortisone Sodium Succ 100 MG/2 ML VIAL IVP SCH (00:47)
[2021-04-24] MEDS: Ipratropium 1 PUFF INHALER IH SCH ×3 (04:18→16:10)
[2021-04-24] MEDS: *HR* HYDROmorphone (PF) 1 MG/ML SYRINGE IVP PRN (04:37)
[2021-04-24] MEDS: *HR* Heparin 5,000 UNIT/ML VIAL SQ SCH ×2 (05:14→14:13)
[2021-04-24 06:39] LABS: Basophils % 0.1 %; Hematocrit 31.1 % (35.3-44.9); Hemoglobin 9.8 g/dL (11.5-15.4); Immature Granulocytes % 0.5 % (0-4); Lymphocytes # 1.3 K/mcL (0.6-4.6); Lymphocytes % 9.7 %; Mean Corpuscular HGB Conc 31.5 g/dL (31.6-35.5); Mean Corpuscular Hemoglobin 29.3 pg (28.0-33.3); Mean Corpuscular Volume 93.1 fL (83.0-100.0); Mean Platelet Volume 8.5 fL (9.4-12.4); Monocytes # 0.6 K/mcL (0.0-1.3); Monocytes % 4.8 %; Neutrophils # 11.5 K/mcL (1.6-8.9); Platelet Count 602 K/mcL (140-400); Red Blood Count 3.34 M/mcL (3.82-4.97); Red Cell Distribution Width 13.3 % (11.5-14.5); Segmented Neutrophils % 84.9 %; White Blood Count 13.5 K/mcL (4.3-11.1)
[2021-04-24] MEDS: Insulin LISPRO 300 UNITS/3 ML VIAL SUBQ SCH ×2 (08:36→11:30)
[2021-04-24] MEDS: Aspirin 81 MG TAB.CHEW PO SCH (08:37)
[2021-04-24] MEDS: *HR* LORazepam 0.5 MG TABLET PO SCH (08:38)
[2021-04-24] MEDS: cilostazoL 100 MG TABLET PO SCH (08:38)
[2021-04-24] MEDS: Cholecalciferol (D-3) 1,000 UNIT (25MCG) TABLET PO SCH (08:39)
[2021-04-24] MEDS: Acetaminophen 325 MG TABLET PO PRN (08:40)
[2021-04-24] MEDS: Nicotine 14 MG PATCH.TD24 TD SCH (08:42)
[2021-04-24] MEDS ORDERED: predniSONE 20 MG TABLET PO SCH ×2 (09:00)
[2021-04-24] MEDS: Sildenafil Citrate 20 MG TABLET PO SCH ×2 (09:23→14:13)
[2021-04-24] MEDS: Furosemide 40 MG/4 ML VIAL IVP SCH (09:51)
[2021-04-24 11:06] LABS: Calcium 8.3 mg/dL (8.6-10.3); Chloride 103 mEq/L (98-107); Glucose 92 mg/dL (70-105); Potassium 3.4 mEq/L (3.5-5.1); Sodium 137 mEq/L (136-145)
[2021-04-24 11:40] LABS: Estimated Average Glucose 111 mg/dl; Hemoglobin A1C 5.5 %
[2021-04-24 13:00] LABS: BUN/Creatinine Ratio 33 (6-26); Blood Urea Nitrogen 18 mg/dL (6-20); Carbon Dioxide 27 mEq/L (23-29); Osmolality,Calculated 286 (280-300); eGFR For African Americans > 60 (> 60); eGFR For Non-African Americans > 60 (> 60)
[2021-04-24 13:42] VITALS: O2SAT 94
[2021-04-24 16:59] VITALS: BP 124/76; PULSE 94; TEMP 98.1
== END 2021-04-24 19:48 | disposition home or self-care (01) | DRG 180 ==
LOC: EMEROOARM 00:42 → 2NNU 16:38 → SUATTDRO 17:42 → 2NNU 17:42 → 2ANU 04-24 15:03
PROVIDERS: ADMIT Pharmacist; ATTEND Internal Medicine